=== PATIENT | male | born 1985 | race Caucasian/White ===

== ENCOUNTER 2022-12-25 14:13 | Emergency (ER) | payer BC ==
[2022-12-25] MEDS ORDERED: KETOROLAC 30 MG/ML INJ ONE ×2 (14:59→15:07)
[2022-12-25] MEDS ORDERED: NA CHLORIDE 0.9% 0 ML ONE (15:00)
[2022-12-25] MEDS ORDERED: ONDANSETRON 4 MG/2 ML VIAL ONE ×2 (15:00→15:07)
[2022-12-25 15:03] LABS: Absolute Lymphocytes (CBC) 3.5 K/uL (0.7-4.9); Hematocrit 43.8 % (39.6-49.0); Lymphocytes % 39.2 % (15.3-44.8); MCV 87.8 fL (80-100); MPV 8.5 fL (7.6-11.3)
[2022-12-25] MEDS ORDERED: NA CHLORIDE 0.9% 1,000 ML ONE (15:07)
[2022-12-25 15:18] LABS: Potassium 3.9 mEq/L (3.5-5.1)
--- NOTE | 2022-12-25 15:19 | RAD REPORT ---
EXAM DESCRIPTION: CT - Stone Protocol - 12/25/2022 2:42 pm CLINICAL HISTORY: right flank, stone COMPARISON: No comparisons TECHNIQUE: Thin cut axial CT imaging of the abdomen and pelvis was performed without IV contrast. Mu ltiplanar reformats were generated and reviewed. All CT scans are performed using dose optimization technique as appropriate and may include automated exposure control or mA/KV adjustment according to patient size. FINDINGS: No suspicious findings in the lung bases. The liver, spleen, and pancreas show no suspicious findings. Gallbladder and biliary tree are also wi thout suspicious finding. Symmetric renal contour, without suspicious parenchymal findings within limits of noncontrast techniq ue. Mild right hydroureteronephrosis. Distal right ureter 5 millimeter calculus may be the cause of o bstruction. Nonobstructing calculi throughout the right renal calyces, not exceeding 5 millimeter. Le ft mid pole 3 millimeter nonobstructing calculus. No dilated bowel loops or bowel wall thickening. Appendix is unremarkable. No free air, free fluid or inflammatory stranding. No hernia, mass or bulky lymphadenopathy. The urinary bladder is decompresse d, limiting evaluation. No suspicious bony findings. IMPRESSION: Mild right hydroureteronephrosis. 5 millimeter distal right ureteric calculus which may be the cause of obstruction. Other nonobstructing calculi bilaterally as above, more abundant on the right. The findings were communicated to Terry Bains on 12/25/2022 at 15:15 hours.
[2022-12-25 16:39] LABS: Specific Gravity 1.008 (1.005-1.030); Urine Bacteria <20 /HPF (<20); Urine Bilirubin NEGATIVE (Negative); Urine Blood 3+ (OVER) (Negative); Urine Clarity Clear (Clear); Urine Color Light-Yellow (Yellow); Urine Glucose NEGATIVE (Negative); Urine Mucus Slight /HPF (None Seen); Urine Protein NEGATIVE (Negative); Urine RBC >50 /HPF (None Seen); Urine Urobilinogen Normal (Normal); Urine pH 5.5 (5.0-7.0)
--- NOTE | 2022-12-25 17:01 | ER ---
Nurse's Notes [facility] Name: Jamal Santana Age: 37 yrs Sex: Male : 1985 Arrival Date: 12/25/2022 Time: 14:13 Bed 5 Private MD: Diagnosis: Calculus of kidney with calculus of ureter;Solitary pulmonary nodule Presentation: 12/25 14:32 Chief complaint: Patient states: Right flank pain with blood in urine that began today, vg1 states nausea, denies vomiting. Coronavirus screen: Vaccine status: Patient reports receiving the 2nd dose of the covid vaccine. Client denies travel out of the [place] in the last 14 days. Ebola Screen: Patient negative for fever greater than or equal to 101.5 degrees Fahrenheit, and additional compatible Ebola Virus Disease symptoms Patient denies exposure to infectious person. Patient denies travel to an Ebola-affected area in the 21 days before illness onset. Initial Sepsis Screen: Does the patient meet any 2 criteria? No. Patient's initial sepsis screen is negative. Does the patient have a suspected source of infection? No. Patient's initial sepsis screen is negative. Risk Assessment: Do you want to hurt yourself or someone else? Patient reports no desire to harm self or others. Onset of symptoms was December 25, 2022. 14:32 Method Of Arrival: Ambulatory 1 14:32 Acuity: DORENE 3 vg1 Triage Assessment: 14:33 General: Appears uncomfortable, Behavior is cooperative. Pain: Complains of pain in vg1 posterior aspect of right lateral abdomen Pain currently is 6 out of 10 on a pain scale. GI: Reports nausea. : Reports blood in urine. Historical: - Allergies: 14:33 No Known Allergies; vg1 - Home Meds: 14:33 Ibuprofen Oral [Active]; vg1 - PMHx: 14:33 Chronic Knee Pain; vg1 - PSHx: 14:33 Right knee; Left Knee; vg1 - Immunization history:: Client reports receiving the 2nd dose of the Covid vaccine. - Social history:: Smoking status: Patient denies any tobacco usage or history of. Screenin:21 [facility] ED Fall Risk Assessment (Adult) History of falling in the last 3 months, ld1 including since admission No falls in past 3 months (0 pts). Abuse screen: Denies threats or abuse. Denies injuries from another. Nutritional screening: No deficits noted. Tuberculosis screening: No symptoms or risk factors identified. Assessment: 15:21 Reassessment: See triage assessment. ld1 Vital Signs: 14:32 Pulse 70; Resp 16; Temp 98.4(TE); Pulse Ox 99% on R/A; Weight 108.86 kg; Height 5 ft. vg1 10 in. ; Pain 6/10; 14:55 Pain 7/10; nj1 15:21 BP 133 / 94; Pulse 58; Resp 18; Pulse Ox 100% on R/A; ld1 15:53 BP 131 / 88; Pulse 68; Resp 18; Pulse Ox 100% on R/A; ld1 16:30 BP 139 / 96; Pulse 65; Resp 18; Pulse Ox 100% on R/A; ld1 17:17 BP 130 / 97; Pulse 65; Resp 17; Pulse Ox 100% on R/A; Pain 3/10; nj1 14:32 Body Mass Index 34.44 (108.86 kg, 177.8 cm) vg1 14:32 Pain Scale: Adult vg1 14:55 Pain Scale: Adult nj1 17:17 Pain Scale: Adult nj1 ED Course: 14:17 Patient arrived in ED. mr 14:18 Terry Bains MD is Attending Physician. bs3 14:33 Triage completed. vg1 14:33 Arm band placed on. vg1 14:43 Stone Protocol In Process Unspecified. EDMS 14:54 Inserted saline lock: 20 gauge in right antecubital area, using aseptic technique. nj1 Blood collected. 15:21 Selma Mcwilliams, SMITHA is Primary Nurse. ld1 15:21 Patient has correct armband on for positive identification. Placed in gown. Bed in low ld1 position. Call light in reach. Side rails up X2. hospital monitor on. Pulse ox on. NIBP on. Door closed. Noise minimized. Warm blanket given. 15:21 No provider procedures requiring assistance completed. ld1 17:17 IV discontinued, intact, bleeding controlled. nj1 Administered Medications: 14:55 Drug: NS 0.9% IV 1000 ml Route: IV; Rate: 1000 ml; Site: right antecubital; nj1 14:55 Drug: Ketorolac IVP 15 mg Route: IVP; Site: right antecubital; nj1 17:16 Follow up: Response: No adverse reaction; Pain is decreased nj1 14:55 Drug: Ondansetron IVP 4 mg Route: IVP; Site: right antecubital; nj1 17:16 Follow up: Response: No adverse reaction nj1 Medication: 15:21 VIS not applicable for this client. ld1 Outcome: 17:00 Discharge ordered by . bs3 17:17 Discharged to home ambulatory, with significant other. nj1 17:17 Condition: stable 17:17 Discharge instructions given to patient, significant other, Instructed on discharge instructions, follow up and referral plans. medication usage, urine strainer, Demonstrated understanding of instructions, follow-up care, medications. 17:18 Patient left the ED. nj1 Signatures: Dispatcher [employer] BARBICA Melody Galindo Victoria, RN RN vg1 Selma Mcwilliams RN RN ld1 Terry Bains MD MD bs3 Judie Reno RN RN nj1
--- NOTE | 2022-12-25 17:01 | EDPHYS ---
Physician Documentation [facility] Name: Jamal Santana Age: 37 yrs Sex: Male : 1985 Arrival Date: 12/25/2022 Time: 14:13 Bed 5 Private MD: ED Physician Terry Bains HPI: 12/25 14:29 This 37 yrs old Male presents to ER via Unassigned with complaints of bs3 Possible Kidney Stone. 14:29 37-year-old male history of kidney stone several years ago presents with right flank bs3 pain started suddenly just prior to arrival he had associated blood with urination no fevers or chills no nausea no vomiting no chest pain no shortness of breath nothing else bothering him he has bad knees in general and therefore took 600 mg of ibuprofen at around 9 AM nothing makes the pain better or worse. Historical: - Allergies: 14:33 No Known Allergies; vg1 - Home Meds: 14:33 Ibuprofen Oral [Active]; vg1 - PMHx: 14:33 Chronic Knee Pain; vg1 - PSHx: 14:33 Right knee; Left Knee; vg1 - Immunization history:: Client reports receiving the 2nd dose of the Covid vaccine. - Social history:: Smoking status: Patient denies any tobacco usage or history of. ROS: 14:29 Constitutional: Negative for fever, chills bs3 14:29 All other systems are negative. Exam: 14:29 Constitutional: Patient is writhing in pain he is standing up he does not want to sit bs3 down Head/Face: Normocephalic, atraumatic. Eyes: Pupils equal round and reactive to light, extra-ocular motions intact. Lids and lashes normal. ENT: mmm, no posterior phyarngeal erythema Chest/axilla: Normal chest wall appearance and motion. Nontender with no deformity. No lesions are appreciated. Cardiovascular: Regular rate and rhythm with a normal S1 and S2. symmetric pulses in upper extremities Respiratory: Lungs have equal breath sounds bilaterally, clear to auscultation, no respiratory distress Abdomen/GI: Soft, non-tender, no rebound or guarding Back: Right CVA tenderness Skin: Warm, dry with normal turgor. Normal color with no rashes, no lesions, and no evidence of cellulitis. MS/ Extremity: Pulses equal, no cyanosis. Neurovascular intact. Full, normal range of motion. Neuro: Awake and alert, GCS 15, oriented to person, place, time, and situation. Cranial nerves II-XII grossly intact. Motor strength 5/5 in all extremities. Sensory grossly intact. Vital Signs: 14:32 Pulse 70; Resp 16; Temp 98.4(TE); Pulse Ox 99% on R/A; Weight 108.86 kg; Height 5 ft. vg1 10 in. ; Pain 6/10; 14:55 Pain 7/10; nj1 15:21 BP 133 / 94; Pulse 58; Resp 18; Pulse Ox 100% on R/A; ld1 15:53 BP 131 / 88; Pulse 68; Resp 18; Pulse Ox 100% on R/A; ld1 16:30 BP 139 / 96; Pulse 65; Resp 18; Pulse Ox 100% on R/A; ld1 17:17 BP 130 / 97; Pulse 65; Resp 17; Pulse Ox 100% on R/A; Pain 3/10; nj1 14:32 Body Mass Index 34.44 (108.86 kg, 177.8 cm) vg1 14:32 Pain Scale: Adult vg1 14:55 Pain Scale: Adult nj1 17:17 Pain Scale: Adult nj1 MDM: 14:18 Patient medically screened. bs3 14:29 Differential diagnosis: nephrolithiasis, pyelonephritis, UTI, pancreatitis, ruptured bs3 AAA, dissecting AAA. Data reviewed: vital signs, nurses notes. ED course: We will check labs will get CT has no recent CT we will treat pain and reassess unlikely AAA/dissection given his clinical history he has no significant medical history or risk factors. 15:08 Independent interpretation of the following test(s) in the Emergency Department CT bs3 Scan: My interpretation is Distal 2 to 3 mm stone in the right ureter. 15:55 ED course: CT notable for stone as well as pulmonary nodule I discussed the incidental bs3 finding with the patient I advised him to follow-up with primary care for outpatient CT scan return precautions given. 16:59 ED course: ua neg for acute pathology. bs3 12/25 14:29 Order name: CBC with Diff; Complete Time: 15:55 bs3 12/25 14:29 Order name: BMP; Complete Time: 15:55 bs3 12/25 14:29 Order name: Urinalysis w/ reflexes; Complete Time: 16:59 bs3 12/25 14:33 Order name: Stone Protocol; Complete Time: 15:55 EDMS Administered Medications: 14:55 Drug: NS 0.9% IV 1000 ml Route: IV; Rate: 1000 ml; Site: right antecubital; nj1 14:55 Drug: Ketorolac IVP 15 mg Route: IVP; Site: right antecubital; nj1 17:16 Follow up: Response: No adverse reaction; Pain is decreased nj1 14:55 Drug: Ondansetron IVP 4 mg Route: IVP; Site: right antecubital; nj1 17:16 Follow up: Response: No adverse reaction nj1 Disposition Summary: 12/25/22 17:00 Discharge Ordered Location: Home bs3 Problem: new bs3 Symptoms: have improved bs3 Condition: Stable bs3 Diagnosis - Calculus of kidney with calculus of ureter bs3 - Solitary pulmonary nodule bs3 Followup: bs3 - With: Private Physician - When: 5 - 6 days - Reason: Re-evaluation by your physician Discharge Instructions: - Discharge Summary Sheet bs3 - Renal Colic, [id number] bs3 - Pulmonary Nodule, [id number] bs3 Forms: - Medication Reconciliation Form bs3 - Thank You Letter bs3 - Antibiotic Education bs3 - Prescription Opioid Use bs3 Prescriptions: - acetaminophen-codeine 300-15 mg Oral tablet - take 1 tablet by ORAL route every 6 hours for 2 days as needed for pain; 8 bs3 tablet; Refills: 0, Product Selection Permitted - Anaprox DS 550 mg Oral Tablet - take 1 tablet by ORAL route every 12 hours As needed; 20 tablet; Refills: 0, bs3 Product Selection Permitted - ondansetron 8 mg Oral tablet,disintegrating - take 1 tablet by ORAL route every 8 hours; 12 tablet; Refills: 0, Product bs3 Selection Permitted Signatures: Dispatcher [employer] Birdie Brunson RN RN vg1 Terry Bains MD MD bs3 Judie Reno RN RN nj1 Corrections: (The following items were deleted from the chart) 14:31 14:30 Abdomen Pelvis Wo [id number] ordered. EDMS EDMS
[2022-12-25 17:33] VITALS: TEMP 98.4
[2022-12-25 17:44] VITALS: O2SAT 100
[2022-12-25 17:48] VITALS: BP 130/97
== END 2022-12-25 17:18 | disposition home or self-care (01) ==
LOC: ER 14:13
DX: N20.0 Calculus of kidney (principal); N20.1 Calculus of ureter; Z87.442 Personal history of urinary calculi; R91.1 Solitary pulmonary nodule
CPT/HCPCS: 85025; 81001; 80048; 36415; 76377; 74176; 96375; 96374; 99285; J2405; J7030

== ENCOUNTER → 2023-08-17 | Emergency (ER) | payer BC ==
[~2023-08-17] MED LIST: ACETAMINOPHEN 500 MG TAB ONE; KETOROLAC 30 MG/ML INJ ONE; MORPHINE 4 MG/ML SYR ONE; NA CHLORIDE 0.9% 1,000 ML ONE; ONDANSETRON 4 MG/2 ML VIAL ONE; PROMETHAZINE 25 MG TABLET ONE; TAMSULOSIN 0.4 MG SR CAP ONE; TRAMADOL HCL 50 MG TAB ONE
[2023-08-17 03:53] LABS: Absolute Lymphocytes (CBC) 2.6 K/uL (0.7-4.9); Hematocrit 42.2 % (39.6-49.0); Lymphocytes % 36.9 % (15.3-44.8); MCV 86.9 fL (80-100); Platelets 314 thou/uL (152-406); RBC Red Blood Cell Count 4.86 M/uL (4.33-5.43)
[2023-08-17 04:06] LABS: Bilirubin Total 0.3 mg/dL (0.2-1.0); Potassium 3.9 mEq/L (3.5-5.1); Protein, Total 7.2 g/dL (6.4-8.2)
[2023-08-17 05:14] LABS: Specific Gravity 1.017 (1.005-1.030); Urine Bacteria None Seen /HPF (<20); Urine Bilirubin NEGATIVE (Negative); Urine Blood 2+ (Negative); Urine Clarity Turbid (Clear); Urine Color Light-Yellow (Yellow); Urine Glucose NEGATIVE (Negative); Urine Mucus Slight /HPF (None Seen); Urine Protein NEGATIVE (Negative); Urine RBC 21-50 /HPF (None Seen); Urine Urobilinogen Normal (Normal); Urine pH 5.5 (5.0-7.0)
--- NOTE | 2023-08-17 05:41 | ER ---
Nurse's Notes [facility] Name: Jamal Santana Age: 37 yrs Sex: Male : 1985 Arrival Date: 08/17/2023 Time: 02:46 Bed 10 Private MD: Diagnosis: Calculus of kidney;Calculus of kidney with calculus of ureter;Solitary pulmonary nodule;Left pulmonary nodule, right ureteral stone Presentation: 08/17 03:06 Chief complaint: Patient states: I think I have kidney stones, it feels the same. pain vc1 in right lower back when I go to pee just a few dribbles at a time. Coronavirus screen: Vaccine status: Patient reports being unvaccinated. At this time, the client does not indicate any symptoms associated with coronavirus-19. Ebola Screen: Patient negative for fever greater than or equal to 101.5 degrees Fahrenheit, and additional compatible Ebola Virus Disease symptoms Patient denies exposure to infectious person. Patient denies travel to an Ebola-affected area in the 21 days before illness onset. No symptoms or risks identified at this time. Initial Sepsis Screen: Does the patient meet any 2 criteria? No. Patient's initial sepsis screen is negative. Does the patient have a suspected source of infection? No. Patient's initial sepsis screen is negative. Risk Assessment: Do you want to hurt yourself or someone else? Patient reports no desire to harm self or others. Onset of symptoms was August 17, 2023. 03:06 Method Of Arrival: Ambulatory vc1 03:06 Acuity: DOREEN 3 vc1 Triage Assessment: 06:18 General: Appears in no apparent distress. uncomfortable, Behavior is calm, cooperative, vc1 appropriate for age. Pain: Complains of pain in right low back Pain does not radiate. Pain currently is 5 out of 10 on a pain scale. EENT: No deficits noted. No signs and/or symptoms were reported regarding the EENT system. Neuro: Level of Consciousness is awake, alert, obeys commands, Oriented to person, place, time, situation, Appropriate for age. Cardiovascular: No deficits noted. Respiratory: No deficits noted. GI: Reports upper abdominal pain. : Reports inability to void, pain in right in lower back. Derm: No deficits noted. No signs and/or symptoms reported regarding the dermatologic system. Musculoskeletal: No deficits noted. No signs and/or symptoms reported regarding the musculoskeletal system. Historical: - Allergies: 03:08 No Known Allergies; vc1 - PMHx: 03:08 chronic knee pain; vc1 - PSHx: 03:08 left knee; ACL repair; right knee ; ACL repair; vc1 - Immunization history:: Client reports having NOT received the Covid vaccine. Flu vaccine is not up to date. - Social history:: Smoking status: Patient denies any tobacco usage or history of. - Family history:: not pertinent. Screenin:15 [facility] ED Fall Risk Assessment (Adult) History of falling in the last 3 months, vc1 including since admission No falls in past 3 months (0 pts) Confusion or Disorientation No (0 pts) Intoxicated or Sedated No (0 pts) Impaired Gait No (0 pts) Mobility Assist Device Used No (0 pt) Altered Elimination No (0 pt) Score/Fall Risk Level 0 - 2 = Low Risk Oriented to surroundings, Maintained a safe environment, Educated pt \T\ family on fall prevention, incl call for assistance when getting out of bed. Abuse screen: Denies threats or abuse. Nutritional screening: No deficits noted. Tuberculosis screening: No symptoms or risk factors identified. Assessment: 06:21 Reassessment: Patient and/or family updated on plan of care and expected duration. Pain vc1 level reassessed. Patient is alert, oriented x 3, equal unlabored respirations, skin warm/dry/pink. Patient states feeling better. Patient states symptoms have improved. Vital Signs: 03:06 BP 159 / 105; Pulse 71; Resp 17; Temp 98.3; Pulse Ox 98% ; Weight 113.4 kg; Height 5 vc1 ft. 10 in. ; Pain 6/10; 06:08 BP 140 / 88; Pulse 71; Resp 18; Pulse Ox 98% ; vc1 06:17 BP 140 / 88; Pulse 73; Resp 18; Pulse Ox 97% ; vc1 03:06 Body Mass Index 35.87 (113.40 kg, 177.8 cm) vc1 03:06 Pain Scale: Adult vc1 ED Course: 02:50 Patient arrived in ED. gm2 03:08 Triage completed. vc1 03:09 Arm band placed on right wrist. vc1 03:09 Patient has correct armband on for positive identification. Bed in low position. Call vc1 light in reach. Pulse ox on. NIBP on. 03:11 Bhavesh West MD is Attending Physician. sp4 03:30 Inserted saline lock: 20 gauge in right antecubital area, using aseptic technique. vc1 Blood collected. 03:33 Urinalysis w/ reflexes Sent. vc1 03:33 Lipase Sent. vc1 03:33 CMP Sent. vc1 03:33 CBC with Diff Sent. vc1 03:57 Stone Protocol In Process Unspecified. EDMS 05:39 Ayaz Hnery MD is Referral Physician. sp4 06:16 No provider procedures requiring assistance completed. Patient did not have IV access vc1 during this emergency room visit. Patient admitted, IV remains in place. Patient transferred, IV remains in place. IV discontinued. Administered Medications: 03:32 Drug: NS 0.9% IV 1000 ml IV at 1 bolus Per protocol; 1000 mL bolus Route: IV; Rate: 1 vc1 bolus; Site: right antecubital; 06:10 Follow up: IV Status: Completed infusion; IV Intake: 1000ml vc1 03:32 Drug: TORadol - Ketorolac IVP 30 mg IVP once Route: IVP; Site: right antecubital; vc1 06:12 Follow up: Response: No adverse reaction; Marked relief of symptoms vc1 03:32 Drug: Ondansetron IVP 4 mg IVP once; over 2 minutes Route: IVP; Site: right antecubital;vc1 06:10 Follow up: Response: No adverse reaction; Marked relief of symptoms vc1 03:32 Drug: morphine IVP or IV 4 mg IVP once over 4 mins Route: IVP; Infused Over: 4 mins; vc1 Site: right antecubital; 06:08 Follow up: BP 140 / 88; Pulse 71 bpm; Resp 18 bpm; Pulse Ox 98% ; Response: No adverse vc1 reaction; Marked relief of symptoms 06:08 Drug: traMADol PO 100 mg PO once Route: PO; vc1 06:12 Follow up: Response: Medication administered at discharge. vc1 06:08 Drug: Promethazine PO 25 mg PO once Route: PO; vc1 06:14 Follow up: Response: Medication administered at discharge. vc1 06:08 Drug: Acetaminophen PO 1000 mg PO once Route: PO; vc1 06:13 Follow up: Response: Medication administered at discharge. vc1 06:08 Drug: Flomax PO 0.4 mg PO once Route: PO; vc1 06:14 Follow up: Response: Medication administered at discharge. vc1 Medication: 06:15 VIS not applicable for this client. vc1 Intake: 06:10 IV: 1000ml; Total: 1000ml. vc1 Outcome: 05:40 Discharge ordered by . sp4 06:21 Discharged to home ambulatory, 1 06:21 Condition: good 06:21 Discharge instructions given to patient, Instructed on discharge instructions, follow up and referral plans. medication usage, Demonstrated understanding of instructions, follow-up care, medications, Prescriptions given X 4, 06:21 Patient left the ED. vc1 Signatures: Dispatcher [employer] EDMS Lacie Mcgovern RN RN vc1 Bhavesh West MD MD sp4 Shira Ayon 2
--- NOTE | 2023-08-17 05:41 | EDPHYS ---
Physician Documentation [facility] Name: Jamal Santana Age: 37 yrs Sex: Male : 1985 Arrival Date: 08/17/2023 Time: 02:46 Bed 10 Private MD: ED Physician Bhavesh West HPI: 08/17 05:34 This 37 yrs old Male presents to ER via Ambulatory with complaints of sp4 possible kidney stone., Pain. 05:45 Presents with acute onset of right flank pain 2 hours prior to arrival. Patient has had sp4 similar pain in the past with kidney stones. . Historical: - Allergies: 03:08 No Known Allergies; vc1 - PMHx: 03:08 chronic knee pain; vc1 - PSHx: 03:08 left knee; ACL repair; right knee ; ACL repair; vc1 - Immunization history:: Client reports having NOT received the Covid vaccine. Flu vaccine is not up to date. - Social history:: Smoking status: Patient denies any tobacco usage or history of. - Family history:: not pertinent. ROS: 05:45 Constitutional: Negative for fever, chills, and weight loss, Abdomen/GI: Positive for sp4 right flank pain 05:45 All other systems are negative, Exam: 05:45 Constitutional: This is a well developed, well nourished patient who is awake, alert, sp4 and in no acute distress. Head/Face: Normocephalic, atraumatic. Eyes: Pupils equal round and reactive to light, extra-ocular motions intact. Lids and lashes normal. Conjunctiva and sclera are not injected. Cornea within normal limits. Periorbital areas with no swelling, redness, or edema. ENT: Nares patent. No nasal discharge, no septal abnormalities noted. Tympanic membranes are normal and external auditory canals are clear. Oropharynx with no redness, swelling, or masses, exudates, or evidence of obstruction, uvula midline. Mucous membranes moist. Neck: Trachea midline, no thyromegaly or masses palpated, and no cervical lymphadenopathy. Supple, full range of motion without nuchal rigidity, or vertebral point tenderness. Chest/axilla: Normal chest wall appearance and motion. Nontender with no deformity. No lesions are appreciated. Cardiovascular: Regular rate and rhythm with a normal S1 and S2. No gallops, murmurs, or rubs. Normal PMI, no JVD. No pulse deficits. Respiratory: Lungs have equal breath sounds bilaterally, clear to auscultation and percussion. No rales, rhonchi or wheezes noted. No increased work of breathing, no retractions or nasal flaring. Abdomen/GI: Soft, non-tender, with normal bowel sounds. No distension or tympany. No guarding or rebound. No evidence of tenderness throughout. Back: No spinal tenderness. No costovertebral tenderness. Skin: Warm, dry with normal turgor. Normal color with no rashes, no lesions, and no evidence of cellulitis. MS/ Extremity: Pulses equal, no cyanosis. Neurovascular intact. Full, normal range of motion. Neuro: Awake and alert, GCS 15, oriented to person, place, time, and situation. Cranial nerves II-XII grossly intact. Motor strength 5/5 in all extremities. Sensory grossly intact. Psych: Awake, alert, with orientation to person, place and time. Behavior, mood, and affect are within normal limits Vital Signs: 03:06 BP 159 / 105; Pulse 71; Resp 17; Temp 98.3; Pulse Ox 98% ; Weight 113.4 kg; Height 5 vc1 ft. 10 in. ; Pain 6/10; 06:08 BP 140 / 88; Pulse 71; Resp 18; Pulse Ox 98% ; vc1 06:17 BP 140 / 88; Pulse 73; Resp 18; Pulse Ox 97% ; vc1 03:06 Body Mass Index 35.87 (113.40 kg, 177.8 cm) vc1 03:06 Pain Scale: Adult vc1 MDM: 03:11 Patient medically screened. sp4 05:34 ED course: TECHNIQUE: Axial computed tomography images of the abdomen and pelvis sp4 without intravenous contrast. Sagittal and coronal reformatted images were created and reviewed. This CT exam was performed using one or more of the following dose reduction techniques: automated exposure control, adjustment of the mA and/or kV according to patient size, and/or use of iterative reconstruction technique. COMPARISON: CT abdomen and pelvis December 25, 2022. FINDINGS: Lung bases: 12 mm pulmonary nodule in the left lower lobe. No consolidation. ABDOMEN: Liver: Unremarkable. Gallbladder and bile ducts: Unremarkable. No calcified stones. No ductal dilation. Pancreas: Unremarkable. No ductal dilation. Spleen: Unremarkable. No splenomegaly. Adrenals: Unremarkable. No mass. Kidneys and ureters: Punctate bilateral nephrolithiasis. Mild right hydronephrosis with a 5.1 mm calculus in the distal right ureter. No left-sided hydronephrosis or left ureter stone. Stomach and bowel: Unremarkable. No obstruction. No mucosal thickening. PELVIS: Appendix: The visualized appendix is normal. No pericecal inflammation to suggest acute appendicitis. Bladder: Unremarkable. No stones. Reproductive: Bilateral vasectomy surgical clips. ABDOMEN and PELVIS: Intraperitoneal space: Unremarkable. No free air. No significant fluid collection. Bones/joints: Bilateral L5 spondylolysis. No acute fracture visualized. No dislocation. Soft tissues: Unremarkable. Vasculature: Unremarkable. No abdominal aortic aneurysm. Lymph nodes: No pathologically enlarged lymph nodes. IMPRESSION: 1. Punctate bilateral nephrolithiasis. Mild right hydronephrosis with a 5.1 mm calculus in the distal right ureter. 2. 12 mm left solid pulmonary nodule detected on incomplete chest CT. Per Fleischner Society Guidelines, recommend prompt noncontrast Chest CT for further evaluation. These guidelines do not apply to immunocompromised patients and patients with cancer. Follow up in patients with significant comorbidities as clinically warranted. For lung cancer screening, 3. Additional non-emergent findings as above.. 05:45 Differential Diagnosis altered mental status, sepsis, flu, Renal stone . Data reviewed: sp4 vital signs, nurses notes, lab test result(s), radiologic studies, CT scan. Consideration of Admission/Observation Escalation of care including admission/observation considered. ED course: Patient renal stone a is in the distal right ureter 5.1 mm. Patient stable for discharge home with p.o. as needed pain meds and daily Flomax. Will refer patient to urologist. Left pulmonary nodule, patient warrants repeat CT scan in 12 months. Will advise follow-up with primary care physician for repeat CAT scan of the chest in the next 12 months. . 08/17 03:10 Order name: Urinalysis w/ reflexes; Complete Time: 05:28 vc1 08/17 03:16 Order name: CBC with Diff; Complete Time: 04:54 sp4 08/17 03:16 Order name: CMP; Complete Time: 04:54 sp4 08/17 03:16 Order name: Lipase; Complete Time: 04:54 sp4 08/17 03:21 Order name: Stone Protocol EDMS 08/17 03:16 Order name: IV Saline Lock; Complete Time: 03:18 sp4 08/17 03:16 Order name: Labs collected and sent; Complete Time: 03:19 sp4 Administered Medications: 03:32 Drug: NS 0.9% IV 1000 ml IV at 1 bolus Per protocol; 1000 mL bolus Route: IV; Rate: 1 vc1 bolus; Site: right antecubital; 06:10 Follow up: IV Status: Completed infusion; IV Intake: 1000ml vc1 03:32 Drug: TORadol - Ketorolac IVP 30 mg IVP once Route: IVP; Site: right antecubital; vc1 06:12 Follow up: Response: No adverse reaction; Marked relief of symptoms vc1 03:32 Drug: Ondansetron IVP 4 mg IVP once; over 2 minutes Route: IVP; Site: right antecubital;vc1 06:10 Follow up: Response: No adverse reaction; Marked relief of symptoms vc1 03:32 Drug: morphine IVP or IV 4 mg IVP once over 4 mins Route: IVP; Infused Over: 4 mins; vc1 Site: right antecubital; 06:08 Follow up: BP 140 / 88; Pulse 71 bpm; Resp 18 bpm; Pulse Ox 98% ; Response: No adverse vc1 reaction; Marked relief of symptoms 06:08 Drug: traMADol PO 100 mg PO once Route: PO; vc1 06:12 Follow up: Response: Medication administered at discharge. vc1 06:08 Drug: Promethazine PO 25 mg PO once Route: PO; vc1 06:14 Follow up: Response: Medication administered at discharge. vc1 06:08 Drug: Acetaminophen PO 1000 mg PO once Route: PO; vc1 06:13 Follow up: Response: Medication administered at discharge. vc1 06:08 Drug: Flomax PO 0.4 mg PO once Route: PO; vc1 06:14 Follow up: Response: Medication administered at discharge. vc1 Disposition Summary: 08/17/23 05:40 Discharge Ordered Notes: Location: Home sp4 Problem: new sp4 Symptoms: have improved sp4 Condition: Stable sp4 Diagnosis - Calculus of kidney sp4 - Calculus of kidney with calculus of ureter sp4 - Solitary pulmonary nodule sp4 - Left pulmonary nodule, right ureteral stone sp4 Followup: sp4 - With: Ayaz Henry MD - When: 7 - 10 days - Reason: Recheck today's complaints Discharge Instructions: - Discharge Summary Sheet sp4 - Kidney Stones sp4 Forms: - Patient Portal Instructions sp4 Prescriptions: - Flomax 0.4 mg Oral capsule - take 1 capsule ORAL route once daily at bedtime; 30 capsule; Refills: 0, sp4 Product Selection Permitted - ketorolac 10 mg Oral tablet - take 1 tablet ORAL route every 8 hours for 1 day PRN pain; 30 tablet; Refills: sp4 0, Product Selection Permitted - Tramadol 50 mg Oral tablet - take 1 tablet ORAL route every 8 hours PRN pain; 30 tablet; Refills: 0, Product sp4 Selection Permitted - promethazine 25 mg Oral tablet - take 1 tablet ORAL route every 6 hours As needed; 30 tablet; Refills: 0, sp4 Product Selection Permitted Signatures: Dispatcher [employer] EDMS Lacie Mcgovern RN RN vc1 Bhavesh West MD MD sp4 Corrections: (The following items were deleted from the chart) 03:19 03:16 Abdomen Pelvis Wo [id number] ordered. EDMS EDMS
[2023-08-17 09:01] VITALS: BP 140/88; TEMP 98.3; O2SAT 97
--- NOTE | 2023-08-17 10:49 | RAD REPORT ---
EXAM DESCRIPTION: CT - Stone Protocol - 08/17/2023 4:58 am CLINICAL HISTORY: The patient is 37 years old and is Male; Right flank pain TECHNIQUE: Axial computed tomography images of the abdomen and pelvis without intravenous contrast. Sagittal and coronal reformatted images were created and reviewed. This CT exam was performed usi ng one or more of the following dose reduction techniques: automated exposure control, adjustment o f the mA and/or kV according to patient size, and/or use of iterative reconstruction technique. COMPARISON: CT abdomen and pelvis December 25, 2022. FINDINGS: Lung bases: 12 mm pulmonary nodule in the left lower lobe. No consolidation. ABDOMEN: Liver: Unremarkable. Gallbladder and bile ducts: Unremarkable. No calcified stones. No ductal dilation. Pancreas: Unremarkable. No ductal dilation. Spleen: Unremarkable. No splenomegaly. Adrenals: Unremarkable. No mass. Kidneys and ureters: Punctate bilateral nephrolithiasis. Mild right hydronephrosis with a 5.1 mm calculus in the distal right ureter. No left-sided hydronephrosis or left ureter stone. Stomach and bowel: Unremarkable. No obstruction. No mucosal thickening. PELVIS: Appendix: The visualized appendix is normal. No pericecal inflammation to suggest acute appendici tis. Bladder: Unremarkable. No stones. Reproductive: Bilateral vasectomy surgical clips. ABDOMEN and PELVIS: Intraperitoneal space: Unremarkable. No free air. No significant fluid collection. Bones/joints: Bilateral L5 spondylolysis. No acute fracture visualized. No dislocation. Soft tissues: Unremarkable. Vasculature: Unremarkable. No abdominal aortic aneurysm. Lymph nodes: No pathologically enlarged lymph nodes. IMPRESSION: 1. Punctate bilateral nephrolithiasis. Mild right hydronephrosis with a 5.1 mm calculu s in the distal right ureter. 2. 12 mm left solid pulmonary nodule detected on incomplete chest CT. Per Fleischner Society Guidel lo, recommend prompt non-contrast Chest CT for further evaluation. These guidelines do not apply to immunocompromised patients and patients with cancer. Follow up in pa tients with significant comorbidities as clinically warranted. For lung cancer screening, adhere to L [place]-RADS guidelines. Reference: Radiology. 2017; 284(1):228-43. 3. Additional non-emergent findings as above. Electronically signed by: Anastasiia Grace MD 08/17/2023 04:52 AM ACCOUNTING REPRESENTATIVE Due to temporary technical issues with the PACS/Fluency reporting system, reports are being signed by the in house radiologist without review as a courtesy to ensure prompt reporting. The interpreting r adiologist is fully responsible for the content of the report.
== END ==
LOC: ER 02:46
DX: N20.2 Calculus of kidney with calculus of ureter (principal); R91.1 Solitary pulmonary nodule
CPT/HCPCS: 96361; 85025; 81001; 36415; 83690; 80053; 76377; 74176; 96375; 96374; 99284; Q0169; J2405; J7030